=== PATIENT | female | born 1990 | race African-American/Black ===

== ENCOUNTER 2016-07-29 15:21 | Inpatient (IN) | payer BC ==
[~2016-07-29] VITALS: Ht 152.4 cm; Wt 49.9 kg
[~2016-07-29 15:21] MED LIST: IOHEXOL-350 100 ML BOTTLE ONE; SODIUM CHLORIDE 0.9% 10ML VIAL ONE
[2016-07-29] MEDS ORDERED: ONDANSETRON 4MG ODT PO STA (20:30)
[2016-07-29] MEDS ORDERED: MAGNESIUM/ALUMINUM HYDROXIDE/SIMETHICONE 30ML UDC PO STA (20:30)
[2016-07-29] MEDS ORDERED: ACETAMINOPHEN 325MG TABLET PO STA (20:30)
[2016-07-29 20:52] LABS: CLARITY URINE CLOUDY (CLEAR); COLOR URINE YELLOW (YELLOW); GLUCOSE URINE NEGATIVE (NEGATIVE); KETONES URINE 4+ (NEGATIVE); LEUKOCYTE ESTERASE URINE NEGATIVE (NEGATIVE); NITRITE URINE NEGATIVE (NEGATIVE); OCCULT BLOOD URINE NEGATIVE (NEGATIVE); PH URINE 6.5 (4.5-8.0); PROTEIN URINE TRACE (NEGATIVE); UROBILINOGEN URINE 0.2 E.U./dL (0.2-1.0)
[2016-07-29 21:05] LABS: DIFFERENTIAL COMMENT 1; HEMATOCRIT. 33.1 % (36.0-48.0); HEMOGLOBIN. 11.3 g/dL (12.0-16.0); MEAN CORPUSCULAR HEMOGLOBIN 30.4 pg (28.0-32.0); MEAN CORPUSCULAR HGB CONC 34.1 g/dL (31.0-37.0); MEAN CORPUSCULAR VOLUME 89.3 fL (81.0-99.0); PLATELET 204 x1000/uL (130-400); RED BLOOD CELL COUNT 3.71 mill/uL (4.2-5.4); RED CELL DISTRIBUTION WIDTH 12.3 % (11.6-14.6)
[2016-07-29 21:15] LABS: HCG SCREEN NEGATIVE
[2016-07-29 21:16] LABS: ALANINE AMINOTRANSFERASE 18 IU/L (13-61); ALBUMIN 3.5 g/dL (3.4-5.0); ANION GAP 13; CALCIUM 8.8 mg/dL (8.5-10.1); CARBON DIOXIDE 24 mEq/L (21-32); CHLORIDE 104 mEq/L (98-107); INDEX HEMOLYSI 1 (1-3); INDEX ICTERIC 1 (1-4); INDEX LIPEMIC 1 (1-3); LIPASE 79 IU/L (73-393); UREA NITROGEN BLOOD 6 mg/dL (7-21); eGFR > 60 mL/min (>60)
[2016-07-29 21:18] LABS: WBC URINE 0-2 /hpf (0-2)
[2016-07-29 21:19] LABS: BACTERIA URINE 2+; RBC URINE NONE SEEN /hpf (0-2); SQUAMOUS EPITHELIAL CELL URINE 1+ /lpf (RARE/1+); YEAST URINE 1+
[2016-07-29 21:21] LABS: PLATELET ESTIMATE NORMAL
[2016-07-29] MEDS ORDERED: SODIUM CHLORIDE 0.9% 1,000 ML IV ONE (21:35)
[2016-07-29] MEDS ORDERED: ONDANSETRON HCL 4MG/2ML VIAL IV ONE (22:45)
[2016-07-29] MEDS ORDERED: MORPHINE SULFATE 4 MG/ML CPJ (NOT FOR IM USE) IV STA (22:53)
[2016-07-29] MEDS ORDERED: ACETAMINOPHEN 650MG/20.3ML UDC GT PRN (23:15)
[2016-07-29] MEDS ORDERED: NA PHOS,M-B/NA PHOS,DI-BA ENEMA 118ML PR PRN (23:15)
[2016-07-29] MEDS ORDERED: DOCUSATE SODIUM 100MG CAPSULE PO PRN (23:15)
[2016-07-29] MEDS ORDERED: KETOROLAC 60MG/2ML VIAL IM ONE (23:15)
[2016-07-29] MEDS ORDERED: ONDANSETRON HCL 4MG/2ML VIAL IV PRN (23:15)
[2016-07-29] MEDS ORDERED: CLONIDINE 0.1MG TABLET PO PRN (23:15)
[2016-07-29] MEDS ORDERED: MAGNESIUM/ALUMINUM HYDROXIDE/SIMETHICONE 30ML UDC PO PRN (23:15)
[2016-07-29] MEDS ORDERED: ACETAMINOPHEN 325MG TABLET PO PRN (23:15)
[2016-07-29] MEDS ORDERED: GUAIFENESIN 200MG/10ML SUGAR FREE UDC PO PRN (23:15)
[2016-07-29] MEDS ORDERED: HYDROMORPHONE HCL/PF 2MG/ML CPJ IV PRN (23:15)
[2016-07-29] MEDS ORDERED: IPRATROPIUM/ALBUTEROL 0.5-3(2.5)MG/3ML NEB INH PRN (23:15)
[2016-07-29] MEDS ORDERED: ACETAMINOPHEN 650MG SUPP PR PRN (23:15)
[2016-07-29] MEDS ORDERED: DIPHENHYDRAMINE 50MG/ML VIAL IV PRN (23:15)
[2016-07-29] MEDS ORDERED: DEXT 5%/0.45% NACL 1000ML 1,000 ML IV SCH (23:16)
[2016-07-30] MEDS ORDERED: SKIN ADHESIVE 0.7 GM EA TOP ONE (00:13)
[2016-07-30] MEDS ORDERED: BUPIVACAINE HCL/PF 0.5% (5MG/ML) 10ML ONE (00:13)
[2016-07-30] MEDS ORDERED: ROCURONIUM BROMIDE 10MG/ML VIAL 5ML IV ONE (00:14)
[2016-07-30] MEDS ORDERED: PROPOFOL 200MG/20ML VIAL IV ONE (00:14)
[2016-07-30] MEDS ORDERED: FENTANYL CITRATE/PF 50MCG/ML 2ML VIAL ONE (00:14)
[2016-07-30 00:19] LABS: INR 1.1; PROTHROMBIN TIME 11.3 sec
[2016-07-30] MEDS ORDERED: LEVOFLOXACIN 500MG PREMIX 100 ML IV ONE (00:53)
[2016-07-30] MEDS ORDERED: HYDROCODONE/ACETAMINOPHEN 5/325MG TABLET PO PRN ×2 (01:15)
[2016-07-30] MEDS ORDERED: MORPHINE SULFATE 4 MG/ML CPJ (NOT FOR IM USE) IV PRN (01:15)
[2016-07-30] MEDS ORDERED: ACETAMINOPHEN 325MG TABLET PO PRN (01:15)
[2016-07-30] MEDS ORDERED: ONDANSETRON HCL 4MG/2ML VIAL IV PRN (01:15)
[2016-07-30] MEDS ORDERED: MORPHINE SULFATE 2 MG/ML CPJ (NOT FOR IM USE) IV PRN ×2 (01:15→02:30)
[2016-07-30] MEDS ORDERED: METOCLOPRAMIDE HCL 10MG/2ML VIAL ONE (01:24)
[2016-07-30] MEDS ORDERED: DEXAMETHASONE 4MG/ML 1ML VIAL ONE (01:24)
[2016-07-30] MEDS ORDERED: GLYCOPYRROLATE 0.2 MG/ML 2ML VIAL ONE (01:39)
[2016-07-30] MEDS ORDERED: SODIUM CHLORIDE 0.9% 1,000 ML IV SCH (02:16)
[2016-07-30 03:00] VITALS: BP 105/68
[2016-07-30 03:10] VITALS: BP 105/68
[2016-07-30] MEDS ORDERED: SODIUM CHLORIDE 0.9% INJ 3ML FLUSH IVF SCH (06:00)
[2016-07-30 06:32] LABS: HEMATOCRIT. 30.9 % (36.0-48.0); HEMOGLOBIN. 10.7 g/dL (12.0-16.0); MEAN CORPUSCULAR HGB CONC 34.8 g/dL (31.0-37.0); MEAN CORPUSCULAR VOLUME 88.9 fL (81.0-99.0); MEAN PLATELET VOLUME 8.3 fl (7.4-10.4); PLATELET 196 x1000/uL (130-400); RED BLOOD CELL COUNT 3.47 mill/uL (4.2-5.4); RED CELL DISTRIBUTION WIDTH 12.5 % (11.6-14.6); WHITE BLOOD COUNT 18.4 x1000/uL (4.5-11.0)
[2016-07-30 06:41] LABS: DIFFERENTIAL COMMENT 1
[2016-07-30 07:00] LABS: CHLORIDE 106 mEq/L (98-107); INDEX HEMOLYSI 1 (1-3); INDEX ICTERIC 1 (1-4); INDEX LIPEMIC 1 (1-3)
[2016-07-30 07:32] LABS: ALANINE AMINOTRANSFERASE 18 IU/L (13-61); ALBUMIN 2.9 g/dL (3.4-5.0); ANION GAP 15; CALCIUM 8.3 mg/dL (8.5-10.1); CARBON DIOXIDE 21 mEq/L (21-32); HDL CHOLESTEROL 67 mg/dL (40-59); LDL CHOLESTEROL 70 mg/dL (5-100); TRIGLYCERIDE 20 mg/dL (0-150); UREA NITROGEN BLOOD 6 mg/dL (7-21); eGFR > 60 mL/min (>60)
[2016-07-30] MEDS: SODIUM CHLORIDE 0.9% INJ 3ML FLUSH IVF SCH ×2 (07:43→14:06)
[2016-07-30 08:00] VITALS: BP 106/63
[2016-07-30 10:39] LABS: PLATELET ESTIMATE NORMAL
[2016-07-30 12:00] VITALS: BP 95/52
[2016-07-30] MEDS: DEXT 5%/0.45% NACL KCL 20MEQ/L 1,000 ML IV SCH (14:00)
[2016-07-30 16:00] VITALS: BP 95/50
[2016-07-30 19:58] VITALS: BP 100/59
[2016-07-31 00:17] VITALS: BP 100/59
[2016-07-31 04:58] VITALS: BP 96/51
[2016-07-31] MEDS: DEXT 5%/0.45% NACL KCL 20MEQ/L 1,000 ML IV SCH ×3 (05:53→10:00)
[2016-07-31] MEDS: SODIUM CHLORIDE 0.9% INJ 3ML FLUSH IVF SCH (05:54)
[2016-07-31 06:25] LABS: BASOPHILS % 0.3 % (0.0-2.0); EOSINOPHILS % 0.1 % (0.0-5.0); HEMATOCRIT. 30.1 % (36.0-48.0); HEMOGLOBIN. 10.2 g/dL (12.0-16.0); LYMPHOCYTES % 25.9 % (20.0-50.0); MEAN CORPUSCULAR HEMOGLOBIN 30.5 pg (28.0-32.0); MEAN CORPUSCULAR HGB CONC 33.9 g/dL (31.0-37.0); MEAN CORPUSCULAR VOLUME 89.8 fL (81.0-99.0); MEAN PLATELET VOLUME 8.6 fl (7.4-10.4); MONOCYTES % 7.4 % (2.0-8.0); NEUTROPHILS % 66.3 % (40.0-76.0); PLATELET 184 x1000/uL (130-400); RED BLOOD CELL COUNT 3.35 mill/uL (4.2-5.4); RED CELL DISTRIBUTION WIDTH 12.2 % (11.6-14.6); WHITE BLOOD COUNT 11.6 x1000/uL (4.5-11.0)
[2016-07-31 06:50] LABS: ANION GAP 10; CALCIUM 8.3 mg/dL (8.5-10.1); CARBON DIOXIDE 27 mEq/L (21-32); CHLORIDE 111 mEq/L (98-107); INDEX HEMOLYSI 1 (1-3); INDEX ICTERIC 1 (1-4); INDEX LIPEMIC 1 (1-3); MAGNESIUM 2.2 mg/dL (1.8-2.4); PHOSPHORUS 2.9 mg/dL (2.5-4.9); UREA NITROGEN BLOOD 10 mg/dL (7-21); eGFR > 60 mL/min (>60)
[2016-07-31 08:00] VITALS: BP 92/51
== END 2016-07-31 14:05 | disposition home or self-care (01) | DRG 343 ==
LOC: ER 15:23 → 6EST 23:11
PROVIDERS: ADMIT Family Medicine; ATTEND Family Medicine
PROC: 0DTJ4ZZ Resection of Appendix, Percutaneous Endoscopic Approach (ICD-10-PCS; principal; 2016-07-30 12:30)
DX: K35.80 Unspecified acute appendicitis (principal); D64.9 Anemia, unspecified; E16.2 Hypoglycemia, unspecified; Z87.440 Personal history of urinary (tract) infections
CPT/HCPCS: 36415; 71010; 74177; 80048; 80053; 80061; 81001; 83690; 83735; 84100; 84703; 85025; 85610; 86850; 86900; 88304; 93005; 96361; 96374; 96375; 96376; 99285; A4216; J1100; J1885; J1956; J2405; J2704; J2765; J3010; J3490; J7030; Q0162; Q9967